=== PATIENT | female | born 1980 | race Caucasian/White ===

== ENCOUNTER 2017-05-16 16:43 | Observation (INO) | payer OTHER ==
[~2017-05-16] VITALS: Ht 167.6 cm; Wt 49.9 kg
[~2017-05-16 16:43] MED LIST: ALBU90OI6 INH; ALPR.25; Inderal40 MG
[2017-05-16] MEDS ORDERED: GABA300 PO (17:06)
[2017-05-16] MEDS ORDERED: Inderal 20 mg T20 MG GT (17:06)
[2017-05-16 18:15] LABS: BASOPHILS ABSOLUTE AUTO 0.01 K/mm3 (0.00-0.23); BASOPHILS PERCENT AUTO 0 % (0-2); EOSINOPHILS ABSOLUTE AUTO 0.01 K/mm3 (0.00-0.68); EOSINOPHILS PERCENT AUTO 0 % (0-6); Hematocrit 39.4 % (33.0-51.0); Hemoglobin 12.7 g/dL (11.5-16.0); IMMATURE GRAN ABSOLUTE AUTO 0.02 K/mm3 (0.00-0.10); IMMATURE GRAN PERCENT AUTO 0 % (0-1); LYMPHOCYTES ABSOLUTE AUTO 0.13 K/mm3 (0.84-5.20); LYMPHOCYTES PERCENT AUTO 3 % (21-46); MONOCYTES ABSOLUTE AUTO 0.02 K/mm3 (0.16-1.47); MONOCYTES PERCENT AUTO 0 % (4-13); Mean Corpuscular HGB 30.3 pg (26.0-34.0); Mean Corpuscular HGB Conc 32.2 g/dL (31.5-36.5); Mean Corpuscular Volume 94 fL (80-100); Mean Platelet Volume 11.6 fL (9.1-12.4); NEUTROPHILS ABSOLUTE AUTO 4.41 K/mm3 (1.96-9.15); NEUTROPHILS PERCENT AUTO 96 % (41-73); Platelet Count 100 K/mm3 (150-400); RDW Standard Deviation 44.9 fL (35.1-46.3); Red Blood Cell Count 4.19 M/mm3 (3.80-5.20)
[2017-05-16 18:22] LABS: Influenza A Negative (NEGATIVE); Influenza B Negative (NEGATIVE)
[2017-05-16 18:39] LABS: Alanine Aminotransfer (ALT/SGP 442 U/L (12-78); Albumin, Blood 3.3 g/dL (3.4-5.0); Albumin/Globulin Ratio 1.2 (0.8-1.8); Alk Phos 111 U/L (50-136); Anion Gap 10 mmol/L (6-16); Aspartate Aminotrans (AST/SGOT 936 U/L (12-37); Bilirubin, Total 0.7 mg/dL (0.1-1.0); Blood Urea Nitrogen 13 mg/dL (8-24); Bun/Creatinine Ratio 18.6 (12.0-20.0); CO2, Blood 26 mmol/L (21-32); Calcium, Blood 8.8 mg/dL (8.5-10.1); Chloride, Blood 104 mmol/L (98-108); Globulin, Blood 2.8 g/dL (2.2-4.0); Glomerular Filtration Rate >60 (60-); Glucose, Blood 99 mg/dL (70-99); Potassium, Blood 3.5 mmol/L (3.5-5.5); Sodium, Blood 140 mmol/L (136-145); Total Protein, Blood 6.1 g/dL (6.4-8.2)
[2017-05-16 20:03] LABS: Ethanol (Alcohol), Blood, Med <3 mg/dL
[2017-05-17 17:02] LABS: Source, Urine Clean Catch
[2017-05-17 17:05] LABS: Bilirubin, Urine Neg (Neg); Blood, Urine Neg (Neg); Glucose Qualitative, Urine Neg (Neg); Ketones, Urine Neg (Neg); Leukocyte Esterase, Urine Neg (Neg); Nitrite, Urine Neg (Neg); Protein, Urine Neg (Neg); Specific Gravity, Urine 1.005 (1.003-1.022); Urobilinogen, Urine NORM (Normal)
[2017-05-17 17:13] LABS: Appearance, Urine Clear (Clear); Color, Urine Yellow (P-Yellow)
[2017-05-17 17:21] LABS: U Amphetamine Screen Not Detected; U Barbituate Screen Not Detected; U Benzodiazapine Screen Not Detected; U Buprenorphine Screen Not Detected; U Cannabinoids Screen DETECTED; U Cocaine Screen Not Detected; U Methadone Screen Not Detected; U Methamphetamine Screen DETECTED; U Opiates Screen Not Detected; U Oxycodone Screen Not Detected; U Phencyclidine Screen Not Detected; U Propoxyphene Screen Not Detected
[2017-05-18 08:02] LABS: HCV Non Reactive (NR)
== END 2017-05-17 19:19 | disposition home or self-care (01) ==
LOC: ER 16:43 → EOR 21:33
PROVIDERS: Emergency Medicine
DX: R45.851 Suicidal ideations (principal); M54.5 Low back pain; F15.950 Other stimulant use, unspecified with stimulant-induced psychotic disorder with delusions; R79.89 Other specified abnormal findings of blood chemistry; M41.9 Scoliosis, unspecified; M79.1 Myalgia; Z88.5 Allergy status to narcotic agent
CPT/HCPCS: 72100; 76705; 80053; 80074; 81000; 81003; 83690; 85025; 87804; 96360; 96361; 99285; G0378; G0480; J7030

== ENCOUNTER 2019-12-24 12:49 | Emergency (ER) | payer OTHER ==
[~2019-12-24] VITALS: Ht 165.1 cm; Wt 52.2 kg
[~2019-12-24 12:49] MED LIST changes: +GABA300 PO; +Inderal 20 mg T20 MG GT
[2019-12-24] MEDS ORDERED: MONT10T PO (13:54)
[2019-12-24] MEDS ORDERED: GABA100 PO (13:54)
[2019-12-24] MEDS ORDERED: Buspirone HCl30 MG PO (13:55)
[2019-12-24] MEDS ORDERED: GABA400 PO ×2 (13:56→13:58)
[2019-12-24] MEDS ORDERED: AMIT75 PO (13:57)
[2019-12-24] MEDS ORDERED: SERT50 PO (13:57)
== END 2019-12-24 16:19 | disposition home or self-care (01) ==
LOC: ER 12:49
DX: F15.10 Other stimulant abuse, uncomplicated (principal); F41.9 Anxiety disorder, unspecified; J45.909 Unspecified asthma, uncomplicated; F17.200 Nicotine dependence, unspecified, uncomplicated; Z91.14 Patient's other noncompliance with medication regimen; Z88.5 Allergy status to narcotic agent; Z59.0 Homelessness; Z79.899 Other long term (current) drug therapy
CPT/HCPCS: 99285

== ENCOUNTER 2020-03-25 01:21 | Day surgery (SDC) | payer OTHER ==
[~2020-03-25 01:21] MED LIST changes: +AMIT75 PO; +Buspirone HCl30 MG PO; +GABA100 PO; +GABA400 PO; +MONT10T PO; +SERT50 PO
== END 2020-03-25 23:12 | disposition home or self-care (01) ==
LOC: WOUND 01:21
DX: L03.115 Cellulitis of right lower limb (principal); L97.821 Non-pressure chronic ulcer of other part of left lower leg limited to breakdown of skin; F17.200 Nicotine dependence, unspecified, uncomplicated; I87.2 Venous insufficiency (chronic) (peripheral); J45.909 Unspecified asthma, uncomplicated; F41.9 Anxiety disorder, unspecified; Z88.6 Allergy status to analgesic agent; Z79.899 Other long term (current) drug therapy
CPT/HCPCS: G0463

== ENCOUNTER 2020-04-01 02:19 | Day surgery (SDC) | payer OTHER | END 2020-04-01 23:20 | disposition home or self-care (01) | LOC: WOUND 02:19 | DX: L03.115 Cellulitis of right lower limb (principal); I96 Gangrene, not elsewhere classified; L97.811 Non-pressure chronic ulcer of other part of right lower leg limited to breakdown of skin; I87.2 Venous insufficiency (chronic) (peripheral); J45.909 Unspecified asthma, uncomplicated; F41.9 Anxiety disorder, unspecified; M41.9 Scoliosis, unspecified; J32.9 Chronic sinusitis, unspecified; H74.90 Unspecified disorder of middle ear and mastoid, unspecified ear; K74.60 Unspecified cirrhosis of liver; Z88.5 Allergy status to narcotic agent; Z79.899 Other long term (current) drug therapy | CPT/HCPCS: G0463 ==